=== PATIENT | male | born 1965 | race Caucasian/White ===

== ENCOUNTER 2021-04-05 11:46 | Inpatient (IN) | payer BC ==
[~2021-04-05] VITALS: Ht 170.2 cm; Wt 109.8 kg
[2021-04-05 12:15] VITALS: BP 128/73
[2021-04-05] MEDS ORDERED: FOLIC ACID0.4 MG PO (12:18)
[2021-04-05] MEDS ORDERED: MOBIC15 MG PO (12:19)
[2021-04-05] MEDS ORDERED: TIZANIDINE HCL4 M1 PO (12:21)
[2021-04-05] MEDS ORDERED: LIPITOR20 MG PO (12:22)
[2021-04-05] MEDS ORDERED: HYDROCHLOROTHIA25 MG PO (12:23)
[2021-04-05] MEDS ORDERED: AMLODIPINE BESY10 MG PO (12:23)
[2021-04-05] MEDS ORDERED: COREG12.5 MG PO (12:24)
[2021-04-05] MEDS ORDERED: SERTRALINE HCL50 MG PO (12:25)
[2021-04-05] MEDS ORDERED: TRAMADOL HCL100 MG (12:25)
[2021-04-05] MEDS ORDERED: THIAMINE H100 MG/1 M IV (12:26)
[2021-04-05] MEDS ORDERED: FLONASE ALLERG9.9 ML INH (12:26)
[2021-04-05] MEDS ORDERED: CLARITIN10 MG PO (12:27)
[2021-04-05 12:33] VITALS: BP 128/73
[2021-04-05] MEDS ORDERED: DEXTROSE 50% SYRINGE 50 ML IV PRN (13:30)
[2021-04-05] MEDS ORDERED: DOCUSATE SODIUM 100 MG CAP PO PRN (13:30)
[2021-04-05] MEDS ORDERED: PHENAZOPYRIDINE HCL 100 MG TAB PO PRN (13:30)
[2021-04-05] MEDS ORDERED: ALBUTEROL/IPRATROPIUM 3 ML NEB NEB PRN (13:30)
[2021-04-05] MEDS ORDERED: ONDANSETRON HCL INJ 2MG/ML 2ML 2 MG/ML VIAL IV PRN ×2 (13:30)
[2021-04-05] MEDS ORDERED: LIDOCAINE 4% PATCH TP PRN (13:30)
[2021-04-05] MEDS ORDERED: ACETAMINOPHEN 325 MG TAB PO PRN (13:30)
[2021-04-05] MEDS ORDERED: SIMETHICONE 80 MG CHEW PO PRN (13:30)
[2021-04-05] MEDS ORDERED: POTASSIUM CHLORIDE 20 MEQ TAB CR PO PRN (13:30)
[2021-04-05] MEDS ORDERED: HYDRALAZINE HCL 20 MG/ML VIAL IV PRN (13:30)
[2021-04-05] MEDS ORDERED: CHLORASEPTIC SPRAY 177 ML BTL MM PRN (13:30)
[2021-04-05 14:00] VITALS: BP 128/73
[2021-04-05 14:54] LABS: BASOPHILS % 0.1 % (0.0-1.0); HEMATOCRIT 34.2 % (38.2-49.6); HEMOGLOBIN 12.3 g/dL (14.0-18.0); LYMPHOCYTES # (AUTO) 0.5 (1.0-3.2); LYMPHOCYTES % 4.5 % (18.0-39.1); MEAN CORPUSCULAR HEMOGLOBIN 34.2 pg (28-32); MONOCYTES % 17.8 % (4.4-11.3); NEUTROPHILS # (AUTO) 8.5 (2.1-6.9); NEUTROPHILS % 77.1 % (38.7-80.0); PLATELET COUNT 323 x10e3/uL (140-360); RED CELL DISTRIBUTION WIDTH 11.3 % (11.7-14.4)
[2021-04-05 15:17] LABS: ANION GAP 18.2 mmol/L (8-16); CALCIUM 9.7 mg/dL (8.4-10.2); CREATININE, SERUM 0.77 mg/dL (0.72-1.25); POTASSIUM 4.2 mmol/L (3.5-5.1)
[2021-04-05 15:34] VITALS: BP 128/73
[2021-04-05 15:53] VITALS: BP 149/85
[2021-04-05] MEDS: CEFEPIME 1 GM in SODIUM CHLORIDE 0.9% 50ML 50 ML IV SCH ×2 (16:42→21:31)
[2021-04-05] MEDS: ENOXAPARIN SOD INJ 40 MG/0.4 ML SYR SC SCH (16:42)
[2021-04-05] MEDS: HYDROCODONE/APAP 5MG-325MG TAB PO PRN (16:45)
[2021-04-05] MEDS: Vancomycin IV 1.25 GM in SODIUM CHLORIDE 0.9% 250ML 250 ML IV SCH (17:58)
[2021-04-05 21:02] VITALS: BP 124/89
[2021-04-06] VITALS (9 sets, daily range): BP systolic 124–141; BP diastolic 81–89
[2021-04-06] MEDS: Vancomycin IV 1.25 GM in SODIUM CHLORIDE 0.9% 250ML 250 ML IV SCH ×2 (04:07→15:31)
[2021-04-06 05:00] LABS: BASOPHILS % 0.2 % (0.0-1.0); EOSINOPHILS % 0.2 % (0.0-6.0); HEMATOCRIT 32.2 % (38.2-49.6); HEMOGLOBIN 11.6 g/dL (14.0-18.0); LYMPHOCYTES # (AUTO) 0.8 (1.0-3.2); LYMPHOCYTES % 7.4 % (18.0-39.1); MEAN CORPUSCULAR HEMOGLOBIN 33.8 pg (28-32); MEAN CORPUSCULAR VOLUME 93.9 fL (81-99); MONOCYTES # (AUTO) 1.7 (0.2-0.8); MONOCYTES % 16.4 % (4.4-11.3); NEUTROPHILS # (AUTO) 7.6 (2.1-6.9); NEUTROPHILS % 75.2 % (38.7-80.0); PLATELET COUNT 317 x10e3/uL (140-360); RED BLOOD COUNT 3.43 x10e6/uL (4.3-5.7); RED CELL DISTRIBUTION WIDTH 11.4 % (11.7-14.4)
[2021-04-06 05:28] LABS: ALBUMIN 2.4 g/dL (3.5-5.0); ALBUMIN/GLOBULIN RATIO 0.5 (0.8-2.0); ANION GAP 16.3 mmol/L (8-16); CALCIUM 9.4 mg/dL (8.4-10.2); CHOL/HDL RATIO 2.4 (3.9-4.7); CREATININE, SERUM 0.76 mg/dL (0.72-1.25); MAGNESIUM 1.9 MG/DL (1.3-2.1); POTASSIUM 3.3 mmol/L (3.5-5.1)
[2021-04-06] MEDS ORDERED: IOPAMIDOL 370 MG/ML 200 ML INFUS..BTL INJ ONE (05:51)
[2021-04-06] MEDS ORDERED: SODIUM CHLORIDE 0.9% 50ML 50 ML ONE (05:52)
[2021-04-06] MEDS: CEFEPIME 1 GM in SODIUM CHLORIDE 0.9% 50ML 50 ML IV SCH ×3 (05:56→22:03)
[2021-04-06] MEDS: PANTOPRAZOLE SOD 40 MG TABEC PO SCH (07:39)
[2021-04-06] MEDS: HYDROCODONE/APAP 5MG-325MG TAB PO PRN ×2 (12:22→18:24)
[2021-04-06] MEDS: SODIUM CHLORIDE 0.9% 1000ML 1,000 ML IV SCH (13:40)
[2021-04-06] MEDS ORDERED: POTASSIUM CHLORIDE 20MEQ/100ML 200 ML IV ONE (15:15)
[2021-04-06] MEDS: CARVEDILOL 12.5 MG TAB PO SCH (17:43)
[2021-04-06] MEDS: ENOXAPARIN SOD INJ 40 MG/0.4 ML SYR SC SCH (17:44)
[2021-04-06 18:15] LABS: CLARITY,URINE CLEAR (CLEAR); COLOR,URINE YELLOW (YELLOW); KETONES,URINE NEGATIVE (NEGATIVE); LEUKOCYTE ESTERASE ,URINE NEGATIVE (NEGATIVE); NITRITE,URINE NEGATIVE (NEGATIVE); PROTEIN,URINE DIPSTICK NEGATIVE (NEGATIVE); URINE UROBILINOGEN 1 mg/dL (0.2 - 1)
[2021-04-06 18:31] LABS: BACTERIA,URINE RARE /HPF
[2021-04-06] MEDS: MELATONIN 5 MG TABLET PO PRN (22:03)
[2021-04-06] MEDS: LORATADINE 10 MG TAB PO SCH (22:03)
[2021-04-06] MEDS: Morphine 4mg Syringe 4 MG/ML INJ IV PRN (22:03)
[2021-04-07] VITALS (8 sets, daily range): BP systolic 99–133; BP diastolic 64–89
[2021-04-07] MEDS: HYDROCODONE/APAP 5MG-325MG TAB PO PRN ×5 (01:07→22:12)
[2021-04-07] MEDS: SODIUM CHLORIDE 0.9% 1000ML 1,000 ML IV SCH (04:15)
[2021-04-07 04:28] LABS: ALBUMIN 2.2 g/dL (3.5-5.0); ALBUMIN/GLOBULIN RATIO 0.5 (0.8-2.0); ANION GAP 14.5 mmol/L (8-16); CALCIUM 9.2 mg/dL (8.4-10.2); CREATININE, SERUM 0.77 mg/dL (0.72-1.25); POTASSIUM 3.5 mmol/L (3.5-5.1)
[2021-04-07] MEDS: Vancomycin IV 1.25 GM in SODIUM CHLORIDE 0.9% 250ML 250 ML IV SCH ×2 (05:20→16:19)
[2021-04-07] MEDS: CEFEPIME 1 GM in SODIUM CHLORIDE 0.9% 50ML 50 ML IV SCH ×3 (05:21→21:21)
[2021-04-07] MEDS ORDERED: Vancomycin IV 1 GM VIAL ONE (05:29)
[2021-04-07] MEDS: PANTOPRAZOLE SOD 40 MG TABEC PO SCH (07:35)
[2021-04-07] MEDS: CARVEDILOL 12.5 MG TAB PO SCH ×2 (08:55→16:15)
[2021-04-07] MEDS: AMLODIPINE BESYLATE 10 MG TAB PO SCH (08:56)
[2021-04-07] MEDS: ATORVASTATIN 10 MG TAB PO SCH (08:56)
[2021-04-07] MEDS ORDERED: SERTRALINE HCL 50 MG TAB PO SCH (09:00)
[2021-04-07] MEDS ORDERED: MAGNESIUM SULF 1GRAM/DEXTROSE 100 ML IV ONE (13:00)
[2021-04-07] MEDS: Morphine 4mg Syringe 4 MG/ML INJ IV PRN ×3 (13:18→18:28)
[2021-04-07] MEDS: KCL 20MEQ/.9 SOD CHL 1,000 ML IV SCH (14:21)
[2021-04-07] MEDS: ENOXAPARIN SOD INJ 40 MG/0.4 ML SYR SC SCH (16:16)
[2021-04-07 19:01] LABS: INR 0.99; PROTHROMBIN TIME 13.8 seconds (11.9-14.5)
[2021-04-07 19:02] LABS: PARTIAL THROMBOPLASTIN TIME 34.8 seconds (23.8-35.5)
[2021-04-07] MEDS: MELATONIN 5 MG TABLET PO PRN (21:21)
[2021-04-07] MEDS: LORATADINE 10 MG TAB PO SCH (21:21)
[2021-04-07] MEDS: Vancomycin IV 1.5 GM in SODIUM CHLORIDE 0.9% 250ML 300 ML IV SCH (23:59)
[2021-04-08] VITALS (8 sets, daily range): BP systolic 91–138; BP diastolic 67–80
[2021-04-08] MEDS: KCL 20MEQ/.9 SOD CHL 1,000 ML IV SCH ×2 (00:04→08:29)
[2021-04-08] MEDS: DIPHENHYDRAMINE HCL 25 MG CAP PO PRN (00:17)
[2021-04-08] MEDS: Morphine 4mg Syringe 4 MG/ML INJ IV PRN ×3 (00:17→15:14)
[2021-04-08] MEDS: CEFEPIME 1 GM in SODIUM CHLORIDE 0.9% 50ML 50 ML IV SCH (05:06)
[2021-04-08 05:38] LABS: ANION GAP 12.9 mmol/L (8-16); CALCIUM 8.7 mg/dL (8.4-10.2); CREATININE, SERUM 0.73 mg/dL (0.72-1.25); POTASSIUM 3.9 mmol/L (3.5-5.1)
[2021-04-08] MEDS: PANTOPRAZOLE SOD 40 MG TABEC PO SCH (07:40)
[2021-04-08] MEDS: CARVEDILOL 12.5 MG TAB PO SCH ×2 (08:32→16:31)
[2021-04-08] MEDS: ATORVASTATIN 10 MG TAB PO SCH (08:32)
[2021-04-08] MEDS: AMLODIPINE BESYLATE 10 MG TAB PO SCH (08:33)
[2021-04-08] MEDS: Vancomycin IV 1.5 GM in SODIUM CHLORIDE 0.9% 250ML 300 ML IV SCH (11:33)
[2021-04-08] MEDS: SODIUM CHLORIDE 1 GM TAB PO SCH ×2 (12:19→21:07)
[2021-04-08] MEDS: ENOXAPARIN SOD INJ 40 MG/0.4 ML SYR SC SCH (16:31)
[2021-04-08] MEDS: HYDROCODONE/APAP 5MG-325MG TAB PO PRN (17:06)
[2021-04-08] MEDS ORDERED: CEFEPIME 1 GM in SODIUM CHLORIDE 0.9% 50ML 50 ML IV SCH (18:00)
[2021-04-08] MEDS ORDERED: HYDROCODONE/APAP 10MG-325MG TAB PO PRN (19:00)
[2021-04-08] MEDS: MELATONIN 5 MG TABLET PO PRN (21:07)
[2021-04-08] MEDS: LORATADINE 10 MG TAB PO SCH (21:07)
[2021-04-09 00:06] VITALS: BP 128/80
[2021-04-09] MEDS: Vancomycin IV 1.5 GM in SODIUM CHLORIDE 0.9% 250ML 300 ML IV SCH (01:22)
[2021-04-09] MEDS: DIPHENHYDRAMINE HCL 25 MG CAP PO PRN (02:51)
[2021-04-09] MEDS: Morphine 4mg Syringe 4 MG/ML INJ IV PRN ×2 (02:51→11:59)
[2021-04-09 04:00] VITALS: BP 130/94
[2021-04-09 05:11] LABS: BASOPHILS % 0.4 % (0.0-1.0); EOSINOPHILS # (AUTO) 0.3 (0.0-0.4); EOSINOPHILS % 3.4 % (0.0-6.0); HEMOGLOBIN 10.6 g/dL (14.0-18.0); LYMPHOCYTES % 14.1 % (18.0-39.1); MEAN CORPUSCULAR HEMOGLOBIN 33.7 pg (28-32); MEAN CORPUSCULAR HGB CONC 33.1 g/dL (31-35); MEAN CORPUSCULAR VOLUME 101.6 fL (81-99); MONOCYTES # (AUTO) 1.4 (0.2-0.8); MONOCYTES % 18.7 % (4.4-11.3); NEUTROPHILS # (AUTO) 4.5 (2.1-6.9); NEUTROPHILS % 60.8 % (38.7-80.0); PLATELET COUNT 395 x10e3/uL (140-360); RED BLOOD COUNT 3.15 x10e6/uL (4.3-5.7); RED CELL DISTRIBUTION WIDTH 11.9 % (11.7-14.4)
[2021-04-09 05:37] LABS: ANION GAP 14.5 mmol/L (8-16); CREATININE, SERUM 0.64 mg/dL (0.72-1.25); POTASSIUM 3.5 mmol/L (3.5-5.1)
[2021-04-09 08:38] VITALS: BP 128/68
[2021-04-09] MEDS ORDERED: FUROSEMIDE 20 MG TAB PO SCH (09:00)
[2021-04-09 09:17] VITALS: BP 128/68
[2021-04-09] MEDS: ATORVASTATIN 10 MG TAB PO SCH (09:47)
[2021-04-09] MEDS: PANTOPRAZOLE SOD 40 MG TABEC PO SCH (09:47)
[2021-04-09] MEDS: SODIUM CHLORIDE 1 GM TAB PO SCH (09:47)
[2021-04-09] MEDS: AMLODIPINE BESYLATE 10 MG TAB PO SCH (09:48)
[2021-04-09] MEDS: CARVEDILOL 12.5 MG TAB PO SCH ×2 (09:48→16:03)
[2021-04-09 11:42] VITALS: BP 131/75
[2021-04-09 15:56] VITALS: BP 103/82
[2021-04-09] MEDS: ENOXAPARIN SOD INJ 40 MG/0.4 ML SYR SC SCH (17:27)
== END 2021-04-09 18:33 | disposition short-term general hospital (02) | DRG 871 ==
LOC: MED/SURG3 11:46 → UNDOADMOB 11:46 → PREOBSVTOIN 11:50 → MED/SURG3 11:51 → IMCU 17:03
PROVIDERS: ADMIT Internal Medicine; ATTEND Internal Medicine
DX: A41.01 Sepsis due to Methicillin susceptible Staphylococcus aureus (principal); U07.1 COVID-19; J12.82 Pneumonia due to coronavirus disease 2019; M00.061 Staphylococcal arthritis, right knee; E87.1 Hypo-osmolality and hyponatremia; M00.9 Pyogenic arthritis, unspecified; B95.61 Methicillin susceptible Staphylococcus aureus infection as the cause of diseases classified elsewhere; E66.9 Obesity, unspecified; I10 Essential (primary) hypertension; Z68.37 Body mass index [BMI] 37.0-37.9, adult
CPT/HCPCS: 36415; 71045; 80048; 80053; 80061; 80202; 81001; 82947; 83735; 84443; 84550; 85025; 85610; 85651; 85730; 86141; 86850; 86900; 87040; 87071; 87186; 87205; 93005; 93306; 94799; 96360; 96365; 97139; J0690; J0692; J1650; J2270; J3370; J3475; J3480; J7030; J7050; Q9967; U0002